=== PATIENT | female | born 1955 | race Caucasian/White ===

== ENCOUNTER 2017-07-05 07:17 | Inpatient (IN) | payer OTHER ==
[~2017-07-05] VITALS: Ht 157.5 cm; Wt 92.5 kg
[~2017-07-05 07:17] MED LIST: AZITHROMYCIN 2250 MG PO; BACTRIM DS TAB1 EACH PO; COMBIVENT INH; FLEXERIL PO; IBUPROFEN 800800 M1 PO; MOBIC7.5 M1 PO; NOHOMEMEDICATIONS; NORCO 5-325 TA1 EACH PO; PREDNISONE 20 M20 M1 PO; ULTRAM 50MG TAB50 MG PO
[2017-07-05 07:20] VITALS: BP 169/70
[2017-07-05] MEDS ORDERED: OXYCONTIN10 M1 PO (07:31)
[2017-07-05] MEDS ORDERED: LISINOPRIL5 MG PO (07:32)
[2017-07-05] MEDS ORDERED: METFORMIN HCL500 MG PO (07:33)
[2017-07-05] MEDS ORDERED: LIPITOR 20 MG T20 M1 PO (07:33)
[2017-07-05] MEDS ORDERED: LEVAQUIN 750 M750 MG PO (07:34)
[2017-07-05] MEDS ORDERED: ASPIR 8181 MG PO (07:35)
[2017-07-05 07:36] LABS: ABSOLUTE BASOPHILS 0.1 thou/uL (0.0-0.2); ABSOLUTE EOSINOPHILS 0.3 thou/uL (0.0-0.7); ABSOLUTE LYMPHOCYTES 2.5 thou/uL (0.8-5.3); ABSOLUTE MONOCYTES 1.2 thou/uL (0.0-1.2); ABSOLUTE NEUTROPHILS 7.5 thou/uL (1.6-8.1); BASOPHILS 0.6 %; EOSINOPHILS 2.2 %; HEMATOCRIT 39.1 % (37.0-47.0); HEMOGLOBIN 13.1 gm/dL (12.0-15.0); LYMPHOCYTES 21.8 %; MCH 30.2 pg (26.0-34.0); MCHC 33.6 g/dL (28.0-37.0); MCV 89.9 fL (80.0-100.0); MONOCYTES 10.4 %; MPV 8.4 fl. (7.2-11.1); NUCLEATED RBCS 0 /100WBC; PLATELET COUNT* 321 thou/uL (150-400); RBC 4.35 mil/uL (4.20-5.00); RDW-CV 13.7 % (10.5-14.5); WBC 11.5 thou/uL (4.0-11.0)
[2017-07-05] MEDS ORDERED: ALBUTEROL2.5 MG/31 INH (07:36)
[2017-07-05 07:41] LABS: CALCIUM 9.3 mg/dL (8.5-10.1); CREATININE 0.6 mg/dL (0.6-1.3); POTASSIUM 4.2 mmol/L (3.5-5.1)
[2017-07-05 07:46] LABS: ALBUMIN 2.8 g/dL (3.4-5.0); TOTAL BILIRUBIN 0.2 mg/dL (<0.1-1.0); TOTAL PROTEIN 7.5 g/dL (6.4-8.2)
[2017-07-05 09:14] LABS: BE 2.8 mmol/L (-2 to +3); HCO3 29.6 mmol/L (22.0-26.0); PO2 73.5 mmHg (75.0-100.0); pH 7.346 (7.340-7.450)
[2017-07-05 09:17] LABS: PCO2 55.4 mmHg (35.0-45.0)
[2017-07-05 15:26] VITALS: BP 128/57
[2017-07-05 15:35] VITALS: BP 136/64
--- NOTE | 2017-07-05 16:06 | EKG ---
[place] [address] ELECTROCARDIOGRAM REPORT Name: PHILIP SAUL Room: [address] IN [facility]#: [id number] Admission: 07/05/17 Attend Phys: Shravan Pérez, Discharge: Date of : 57 Report #: [id number] THIS REPORT FOR: //name// [facility] ED Test Date: 2017-07-05 Test Time: 07:51:38 Pat Name: PHILIP SAUL Department: Room: Gender: F Crusher: Edita CASTILLO : 1955 Requested By: Saira Patel Order Number: [id number] MD: Edward Escalante Measurements Intervals [place] Rate: 65 P: 60 TX: 212 QRS: -29 QRSD: 112 T: 40 QT: 404 QTc: 421 Interpretive Statements Sinus rhythm Borderline prolonged TX interval Incomplete right bundle branch block Baseline wander in lead(s) V2 No previous ECG available for comparison Electronically Signed On 07-05-2017 16:06:02 CDT by Edward Escalante [email or web address] <ELECTRONICALLY SIGNED> By: Edward Escalante MD, [facility] 07/05/17 1606 [phone] Edward Escalante MD, [facility] /EPI
[2017-07-05 20:00] VITALS: BP 159/81
[2017-07-06 00:22] VITALS: BP 130/65
[2017-07-06 03:58] VITALS: BP 137/80
[2017-07-06 05:41] LABS: HEMATOCRIT 36.9 % (37.0-47.0); HEMOGLOBIN 12.4 gm/dL (12.0-15.0); MCH 30.1 pg (26.0-34.0); MCHC 33.6 g/dL (28.0-37.0); MCV 89.6 fL (80.0-100.0); NUCLEATED RBCS 0 /100WBC; PLATELET COUNT* 317 thou/uL (150-400); RBC 4.12 mil/uL (4.20-5.00); RDW-CV 13.6 % (10.5-14.5); WBC 10.8 thou/uL (4.0-11.0)
[2017-07-06 06:03] LABS: CREATININE 0.5 mg/dL (0.6-1.3); POTASSIUM 3.9 mmol/L (3.5-5.1)
[2017-07-06 06:26] LABS: ABSOLUTE LYMPHOCYTES 0.5 thou/uL (0.8-5.3); ABSOLUTE MONOCYTES 0.1 thou/uL (0.0-1.2); ABSOLUTE NEUTROPHILS 10.2 thou/uL (1.6-8.1); ANISOCYTOSIS 1+; PLATELET ESTIMATE ADEQUATE; POIKILOCYTOSIS 1+
[2017-07-06 08:00] VITALS: BP 144/77
[2017-07-06 11:20] VITALS: BP 151/80
[2017-07-06 15:19] VITALS: BP 152/69
[2017-07-06 20:00] VITALS: BP 147/70
[2017-07-07] VITALS: BP 137/62
[2017-07-07 04:00] VITALS: BP 143/69
[2017-07-07 05:14] LABS: ABSOLUTE LYMPHOCYTES 1.4 thou/uL (0.8-5.3); ABSOLUTE MONOCYTES 0.9 thou/uL (0.0-1.2); ABSOLUTE NEUTROPHILS 12.1 thou/uL (1.6-8.1); BASOPHILS 0.1 %; HEMATOCRIT 36.9 % (37.0-47.0); HEMOGLOBIN 12.2 gm/dL (12.0-15.0); LYMPHOCYTES 9.6 %; MCHC 33.1 g/dL (28.0-37.0); MCV 90.6 fL (80.0-100.0); MONOCYTES 6.2 %; MPV 8.2 fl. (7.2-11.1); NUCLEATED RBCS 0 /100WBC; PLATELET COUNT* 317 thou/uL (150-400); POLYS 84.1 %; RBC 4.08 mil/uL (4.20-5.00); RDW-CV 13.3 % (10.5-14.5); WBC 14.3 thou/uL (4.0-11.0)
[2017-07-07 05:31] LABS: ALBUMIN 2.8 g/dL (3.4-5.0); CALCIUM 8.8 mg/dL (8.5-10.1); CREATININE 0.4 mg/dL (0.6-1.3); MAGNESIUM 2.2 mg/dL (1.8-2.4); POTASSIUM 4.5 mmol/L (3.5-5.1); TOTAL BILIRUBIN 0.2 mg/dL (<0.1-1.0); TOTAL PROTEIN 6.9 g/dL (6.4-8.2)
[2017-07-07 08:00] VITALS: BP 145/70
--- NOTE | 2017-07-07 08:19 | CON ---
[address] [address] CONSULTATION Name: PHILIP SAUL Room: [address] IN M.R.#: [id number] Admission: 07/05/17 Attend Phys: Shravan Pérez, Discharge: Date of : 57 Report #: [id number] THIS REPORT FOR: //name// CC: [facility] physician/PCP Shravan Pérez DATE OF SERVICE: 07/06/2017 CONSULT REQUESTED BY: Mina Syed. INDICATION FOR CONSULTATION: Lung mass. HISTORY OF PRESENT ILLNESS: This is a 62-year-old female with past medical history that includes a history of COPD. The patient is not on supplemental oxygen and not on long-term prednisone. The patient does use p.r.n. narcotic at home. The patient reports that she has been sick for the last couple of weeks, was seen at [facility] last Thursday in the Emergency Room. She reports that she was increasingly short of breath and also was coughing and bringing up scanty sputum at that time. The patient reports having received Levaquin at that time. She is not receiving a steroid. She subsequently was discharged from the ER. The patient yesterday started feeling worse, had significant increase in shortness of breath as well as cough, not much sputum production though, no chest pain, no upper respiratory complaints, no swelling of lower extremities or calf pain. The patient therefore came to our Emergency Room yesterday with increasing shortness of breath. The patient initially also reported chest pain associated with respiration and coughing towards the right side of her chest. Since arrival, she has been treated with corticosteroids in addition to nebulized bronchodilators, has also been treated with Zosyn. She reports marked improvement in her shortness of breath and cough. Her chest pain has essentially subsided. She does have some longstanding pain complaints which she has taken p.r.n. narcotics at times. She also says that she is fairly anxious and has a strong gag reflex. REVIEW OF SYSTEMS: For 12 points is negative except as mentioned above. PAST MEDICAL HISTORY: COPD. She reports having used inhalers in the past. I do not have any previous PFTs available, tubal ligation, hyperglycemia, possible diabetes. Note that the patient is on metformin at home, possible history of hypertension, hyperlipidemia, tubal ligation, hernia surgery in April of 2017. I do not have a measure of her left ventricular ejection fraction available. SOCIAL HISTORY: Extensive history of smoking more than a pack a day, discontinued 2 months ago. No known history [place] heavy [place] [address] CONSULTATION Name: PHILIP SAUL Room: [address]#: [id number] Admission: 07/05/17 Attend Phys: Shravan Pérez, Discharge: Date of : 57 Report #: [id number] drug use. CURRENT MEDICATIONS: List in [employer] reviewed. HOME MEDICATIONS: List also in [facility] reviewed. FAMILY HISTORY: There is no pertinent family history. PHYSICAL EXAMINATION: GENERAL: She is alert, awake and oriented. She does appear to be anxious, but she is in no distress. VITAL SIGNS: She has a pulse of 91 and a blood pressure of 152/69. She is on 2 liters nasal cannula. She has been saturating in the high 90s. Her respiratory rate is mildly elevated to 20. Her temperature was 37.0, T-max 37.2. HEENT: Head is normocephalic and atraumatic. Pupils are equal and reactive. There is no throat erythema. NECK: Does not show raised JVP, asymmetry, mass or lymph nodes. CHEST: Symmetrical expansion on inspection and palpation. On auscultation, there is mild reduction in air flow bilaterally. Otherwise, chest is essentially clear. HEART: Regular. There is no murmur. ABDOMEN: Soft and nontender. EXTREMITIES: Lower extremities show no edema, no calf tenderness. SKIN: Dry and intact. NEUROLOGICAL: Moves all extremities bilaterally equally and spontaneously. There is no focal deficit identified. DIAGNOSTIC DATA: The patient did have a CTA chest performed yesterday. I reviewed both the films as well as report. This is as discussed below in more detail. LABORATORY DATA: The patient's CBC as well as chemistries are in [facility] and these are reviewed. Arterial blood gas, which shows chronic hypercarbic respiratory failure with a pCO2 of 55. There appears to be an acute component as well on admission in [facility] reviewed. ASSESSMENT AND PLAN: 1. Lung mass with mediastinal lymphadenopathy. There is a mass-like density, which is seen superiorly and anteriorly in the right lung. This is suspicious of a malignancy. The mass does appear to be in the right hilar region; however, I am not certain if there in fact is endobronchial extension. Certainly it should be possible to do a bronchoscopy; however, I am not certain if it will be possible to in fact perform a biopsy of this mass using a regular bronchoscopy. Performing a CT-guided lung biopsy is another option. The mass does extend close to the pleura anteriorly; however, if a CT-guided biopsy is performed, then it may be difficult to distinguish between the mass and post-obstructive [address] [place] [address] CONSULTATION Name: PHILIP SAUL Room: [address]#: [id number] Admission: 07/05/17 Attend Phys: Shravan Pérez, Discharge: Date of : 57 Report #: [id number] atelectatic lung. I tried reaching a radiologist at this time, I was, however, unable, will tentatively plan on a bronchoscopy tomorrow. We may discuss with the radiologist regarding feasibility or otherwise of CT-guided biopsy before we proceed with a bronchoscopy. Note that this mass should be approachable using a bronchoscopy with endobronchial ultrasound with navigation. Therefore if this mass cannot be adequately biopsied otherwise, then I would favor referring her to [facility] for a bronchoscopy with endobronchial ultrasound and navigation rather than a CT surgery referral as this will be less invasive for this patient. Down the line the patient does appear to need an outpatient PET scan as well. 2. Pulmonary infiltrates/pneumonia. She recently received Levaquin and currently is on Zosyn with the same. 3. Chronic obstructive pulmonary disease exacerbation. Her bronchospasm does appear to have improved. I would, however, recommend continuing with the current dose of Solu-Medrol today, reassess tomorrow regarding potential taper. 4. Deep vein thrombosis prophylaxis. We will hold Lovenox dose tonight. 5. Evaluation of cardiac function. We will also do a 2D echo. Thanks for this consultation. <ELECTRONICALLY SIGNED> By: Kiarra Chatterjee MD 07/07/17 0819 1644 [id number] Tanner MD /ashok
[2017-07-07 11:28] VITALS: BP 152/73
--- NOTE | 2017-07-07 16:09 | 2DMMODE ---
[place] [address] 2 D/M-MODE ECHOCARDIOGRAM Name: PHILIP SAUL Room: [address] IN [facility]#: [id number] Admission: 07/05/17 Attend Phys: Shravan Barbosa Discharge: Date of : 57 Date of Service: 07/07/17 1609 Report #: [id number] THIS REPORT FOR: //name// APPROVED REPORT Study performed: 07/07/2017 14:37:19 EXAM: Comprehensive 2D, Doppler, and color-flow Echocardiogram Patient Location: In-Patient Room #: 214 Status: routine BSA: 1.92 HR: 87 bpm BP: 143/69 mmHg Rhythm: NSR Other Information Study Quality: Good Indications Dyspnea 2D Dimensions LVEF(%): 69.44 (>50%) IVSd: 11.28 (7-11mm) LVOT Diam: 20.13 (18-24mm) LVDd: 52.28 mm PWd: 9.79 (7-11mm) Ascending Ao: 31.09 (22-36mm) LVDs: 31.71 (25-40mm) Aortic Root: 29.41 mm Segovia's LVEF: 69.44 % Volumes Left Atrial Volume (Systole) LA ESV Index: 28.80 mL/m2 Aortic Valve AoV Peak Bala.: 2.34 m/s AO Peak Gr.: 21.91 mmHg LVOT Max P.46 mmHg AO Mean Gr.: 11.80 mmHg LVOT Mean P.38 mmHg LVOT Max V: 1.27 m/s AO V2 VTI: 50.76 cm LVOT Mean V: 0.86 m/s MITA (VTI): 1.89 cm2 LVOT V1 VTI: 30.19 cm Mitral Valve E/A Ratio: 0.81 [place] [address] 2 D/M-MODE ECHOCARDIOGRAM Name: PHILIP SAUL Room: [address] IN .R.#: [id number] Admission: 07/05/17 Attend Phys: Shravan Barbosa Discharge: Date of : 57 Date of Service: 07/07/17 1609 Report #: [id number] MV Decel. Time: 277.64 ms MV E Max Bala.: 1.00 m/s MV PHT: 80.52 ms MVA (PHT): 2.73 cm2 TDI E/Lateral E': 9.09 E/Medial E': 9.09 Medial E' Bala.: 0.11 m/s Lateral E' Bala.: 0.11 m/s Pulmonary Valve PV Peak Bala.: 1.19 m/s PV Peak Gr.: 5.71 mmHg Left Ventricle The left ventricle is normal size. There is normal LV segmental wall motion. There is normal left ventricular wall thickness. Left ventricular systolic function is normal. The left ventricular ejection fraction is within the normal range. LVEF is 60-65%. Grade I - abnormal relaxation pattern. Right Ventricle The right ventricle is normal size. The right ventricular systolic function is normal. Atria The left atrium size is normal. The right atrium size is normal. Aortic Valve Mild aortic valve sclerosis. No aortic regurgitation is present. Mild aortic stenosis. Mitral Valve The mitral valve is normal in structure. Trace mitral regurgitation. No evidence of mitral valve stenosis. Tricuspid Valve The tricuspid valve is normal in structure. Trace tricuspid regurgitation. Unable to assess PA pressure. Pulmonic Valve Pulmonic valve is not well visualized. There is no pulmonic valvular regurgitation. Great Vessels The aortic root is normal in size. [place] [address] 2 D/M-MODE ECHOCARDIOGRAM Name: PHILIP SAUL Olivia Room: [address]#: [id number] Admission: 07/05/17 Attend Phys: Shravan Barbosa Discharge: Date of : 57 Date of Service: 07/07/17 1609 Report #: [id number] collapses with >50% inspiration Pericardium There is no pericardial effusion. <Conclusion> LVEF is 60-65%. Mild aortic valve sclerosis. <ELECTRONICALLY SIGNED> By: Quinn Aleman MD, FACC 07/07/17 1609 08 08 Quinn Aleman MD, FAC /INF
[2017-07-07 17:19] VITALS: BP 147/75
[2017-07-07 20:00] VITALS: BP 163/73
[2017-07-08 00:11] VITALS: BP 106/50
[2017-07-08 04:28] VITALS: BP 138/69
[2017-07-08 05:19] LABS: ABSOLUTE LYMPHOCYTES 1.2 thou/uL (0.8-5.3); ABSOLUTE NEUTROPHILS 11.5 thou/uL (1.6-8.1); BASOPHILS 0.1 %; HEMATOCRIT 38.2 % (37.0-47.0); HEMOGLOBIN 12.4 gm/dL (12.0-15.0); LYMPHOCYTES 8.7 %; MCH 29.7 pg (26.0-34.0); MCHC 32.5 g/dL (28.0-37.0); MCV 91.3 fL (80.0-100.0); MPV 8.3 fl. (7.2-11.1); NUCLEATED RBCS 0 /100WBC; PLATELET COUNT* 343 thou/uL (150-400); POLYS 84.2 %; RBC 4.18 mil/uL (4.20-5.00); RDW-CV 13.6 % (10.5-14.5); WBC 13.7 thou/uL (4.0-11.0)
[2017-07-08 05:36] LABS: ALBUMIN 2.9 g/dL (3.4-5.0); CALCIUM 9.2 mg/dL (8.5-10.1); CREATININE 0.7 mg/dL (0.6-1.3); POTASSIUM 4.3 mmol/L (3.5-5.1); TOTAL BILIRUBIN 0.2 mg/dL (<0.1-1.0); TOTAL PROTEIN 7.2 g/dL (6.4-8.2)
[2017-07-08 07:44] VITALS: BP 158/96
[2017-07-08] MEDS ORDERED: XANAX 0.25 MG0.25 MG PO (09:58)
[2017-07-08] MEDS ORDERED: HUMALOG KW200 UNIT/1 SUBQ (09:59)
[2017-07-08] MEDS ORDERED: PREDNISONE 10 M10 MG PO (10:03)
[2017-07-08] MEDS ORDERED: PROTONIX40 M1 PO (10:04)
[2017-07-08] MEDS ORDERED: DUONEB 2.5-0.5 M3 ML INH (10:05)
[2017-07-08 10:19] VITALS: BP 158/96
[2017-07-08 12:00] VITALS: BP 157/77
--- NOTE | 2017-07-09 08:22 | OP ---
[address] [address] OPERATIVE REPORT Name: PHILIP SAUL Room: [address] IN M.R.#: [id number] Admission: 07/05/17 Attend Phys: Shravan Pérez, Discharge: 07/08/17 Date of : 57 Report #: [id number] THIS REPORT FOR: //name// CC: [facility] physician/PCP Shravan Pérez PROCEDURE: Bronchoscopy with brushing, washings and bronchial biopsies. INDICATIONS FOR PROCEDURE: The patient is a 62-year-old woman with a history of tobacco abuse, who was found to have very large right hilar mass with extensive mediastinal adenopathy. Based on the imaging, also has marked airway narrowing of the right upper lobe takeoff. Imaging studies were highly suspicious for bronchogenic carcinoma. Bronchoscopy was recommended to evaluate airways and obtain tissue for diagnostic purposes. DESCRIPTION OF PROCEDURE: Consent was obtained from the patient. She was informed of the risks of the procedure and elected to proceed. She was premedicated prior to the procedure with Demerol and Robinul. Also received additional breathing treatment prior to the procedure. She was already on scheduled bronchodilators and antibiotics to cover for post-obstructive pneumonia. Following an initial timeout, the procedure did commence. She was on O2, initially at 2-4 liters per nasal cannula. It was increased up to 8 liters during the procedure. She was given sedation. Total amounts of Versed 6 mg and fentanyl 100 mcg in smaller increments at the start and throughout the procedure. The bronchoscope was advanced through the right naris and into the posterior pharynx. The cords were normal in appearance and moved symmetrically. Despite the prep job, still had considerable amount of cough and gagging. The cords were anesthetized with lidocaine. A bronchoscope was advanced through the cords and into the trachea. She had some mild tracheobronchitis noted. The main kike was just mildly splayed. All segments were open and patent on the left side. Scant amount of secretions were noted. On the right side, there was some distortion with the right upper lobe takeoff pulled somewhat more medial. There was marked deformity noted. Marked mucosal irregularities and narrowing. Did not have any gross endobronchial lesions seen. She had a moderate amount of secretions on the right side. Right middle lobe and right lower lobe bronchi and smaller bronchi were all open and patent. Given the abnormalities noted, attention was directed to the right upper lobe. A cytology brush was obtained with slides prepared. However, given the angle of the takeoff, I was not able to advance it through the slit of what appeared to be probably the anterior segment of the right upper lobe. Once that was done with slides prepared, bronchial biopsies were attempted. Again, [place] [address] OPERATIVE REPORT Name: PHILIP SAUL Room: [address] IN M.R.#: [id number] Admission: 07/05/17 Attend Phys: Shravan Pérez, Discharge: 07/08/17 Date of : 57 Report #: [id number] it was also difficult to biopsy the area that appeared the most abnormal due to the sharp takeoff. It was unable to get as many specimens as would have liked. Note also she had a considerable amount of cough and gagging. This was despite the sedation that was given. She did have some mild bleeding noted with the biopsies. Several biopsies had been taking, was still having difficulty trying to control her cough. A single wash was done. During all this, her O2 saturations, end-tidal CO2 and vital signs were monitored. All parameters remained stable. FINAL DIAGNOSES: Large right hilar mass with extensive mediastinal adenopathy. Has marked abnormalities noted via bronchoscopy. There is airway narrowing, right upper lobe, all consistent with malignancy. PLAN: Await results. If unable to make a diagnosis on this bronchoscopy, can have IR evaluate her. If a repeat procedure does need to be done via a bronchoscopy, general anesthetic would probably be required. <ELECTRONICALLY SIGNED> By: Kiarra Chatterjee MD 07/09/17 0822 1304 [id number] Chatterjee MD /nt
--- NOTE | 2017-07-09 14:15 | PATH ---
[address] [address] PATHOLOGY RPT PROCEDURE Name: PHILIP SAUL Room: [address]#: [id number] Admission: 07/05/17 Date of : 57 Discharge: 07/08/17 Report #: [id number] Path Case #: [id number] Note [facility] Accession Number: [id number] TESTS RESULT FLAG UNITS REF RANGE LAB Clinician Provided Cytology Information No. of containers..01 Other (Miscellaneous) Source: BRONCH WASH RUL DIAGNOSIS: 02 BRONCH WASH RUL NEGATIVE FOR MALIGNANT CELLS. NORMAL BRONCHIAL CELLS AND MACROPHAGES ARE PRESENT. Signed out by: 02 Jewel Beasley MD, Pathologist NPI- [id number] Performed by: 02 Dianna Yoon, Refractory Manager ([facility]) Gross description: 01 8ML, RED, CLOUDY /LCS FLAG LEGEND: L-Low Normal,H-High Normal,LL-Alert Low,HH-Alert High <-Panic Low,>-Panic High,A-Abnormal,AA-Critical Abnormal Performed at: [address] [place] [address] Devang Laurent MD, [address] [address] Ambrose Walker MD, A duplicate report has been generated due to demographic updates. Performed at: [address] [address], [place], [place] [id number] MD Devang Laurent MD Phone: [phone]
--- NOTE | 2017-07-09 14:17 | PATH ---
[address] [address] PATHOLOGY RPT PROCEDURE Name: PHILIP SAUL Room: [address]#: [id number] Admission: 07/05/17 Date of : 57 Discharge: 07/08/17 Report #: [id number] Path Case #: [id number] Note [facility] Accession Number: [id number] TESTS RESULT FLAG UNITS REF RANGE LAB Clinician Provided Cytology Information No. of containers..01 Slide Source: BRONCH BRUSHING RUL DIAGNOSIS: BRONCH BRUSHING RUL INCONCLUSIVE. RARE ATYPICAL CELLS PRESENT. Signed out by: 02 Jewel Beasley MD, Pathologist NPI- [id number] Performed by: 02 Dianna Yoon, Mails Supervisor ([facility]) FLAG LEGEND: L-Low Normal,H-High Normal,LL-Alert Low,HH-Alert High <-Panic Low,>-Panic High,A-Abnormal,AA-Critical Abnormal Performed at: [address] [place] [address] Devang Laurent MD, [address] [place] [id number] Ambrose Walker MD, A duplicate report has been generated due to demographic updates. Performed at: [address] [place] [id number] MD Devang Laurent MD Phone: [phone]
--- NOTE | 2017-07-20 22:35 | CON ---
[address] [address] CONSULTATION Name: PHILIP SAUL Room: [address] IN M.R.#: [id number] Admission: 07/05/17 Attend Phys: Shravan Pérez, Discharge: 07/08/17 Date of : 57 Report #: [id number] THIS REPORT FOR: //name// CC: Mina Chatterjee MD DATE OF SERVICE: 07/07/2017 [facility] REFERRING PHYSICIANS: Include Mina Syed MD and Kiarra Chatterjee MD. PRIMARY SITE AND HISTOPATHOLOGY: The patient has findings consistent with at least a presumed stage III lung cancer, though the pathology is still pending. HISTORY OF PRESENT ILLNESS: The patient was admitted to [facility] on 07/05/2017. She had a several week history of chest wall pain and then she indicated that she was using her inhaler on the day of admission and became short of breath. So, she was admitted to [facility]. The patient had a CT angiogram of the chest on 07/05/2017 and that revealed a mass involving the upper lobe of the right lung that measured about 4.9 cm x 4.1 cm x 5.5 cm. with invasion of the mediastinum and it was consistent with a primary bronchogenic carcinoma. There was extrinsic compression of the right upper lobe airways as well as the pulmonary arteries and veins resulting in postobstructive collapse, pneumonitis, and venous congestion. The patient had bulky superior mediastinal lymphadenopathy that measured about 4.4 cm x 2.8 cm x 4.6 cm. She had a small right pleural effusion. There was no evidence of a pulmonary embolism and then she had an abdominal/pelvic CT on 07/07/2017 and that revealed no acute process or metastatic disease within the abdomen or pelvis. There was a stable left paraspinal soft tissue mass at the T9 level, which could represent metastatic lymphadenopathy. She also had a head MRI on 07/07/2017, was a normal MRI of the brain with and without contrast. There is no evidence of intracranial metastatic disease. She underwent a fiberoptic bronchoscopy on 07/07/2017, which showed marked narrowing of the right upper lobe bronchus suspicious for a malignant process. So, the pathology is pending and I was consulted to see the patient. PAST MEDICAL HISTORY AND PAST SURGICAL HISTORY: Positive for diabetes, hypertension. She had an abdominal hernia repair a few months ago. She had tubal ligation. MEDICATIONS: Includes insulin as needed, ibuprofen as needed. She is on piperacillin-tazobactam. She is on methylprednisolone, alprazolam as needed and at home, she was taking 10 mg of OxyContin every 6 hours as needed for pain. In the hospital, she was on 5-10 mg oxycodone every 6 hours as needed for pain and at home, she was also taking 5 mg lisinopril per day and 20 [place] [address] CONSULTATION Name: DORYSPHILIP Baker Room: [address]#: [id number] Admission: 07/05/17 Attend Phys: Shravan Pérez, Discharge: 07/08/17 Date of : 57 Report #: [id number] day as well as metformin and 81 mg of aspirin and albuterol nebulizer. FAMILY HISTORY: Negative. There is no history of cancer in the family. SOCIAL HISTORY: Cigarettes: She quit smoking about 2 months ago. She smoked about 1-1/2 packs per day since she was about 15 years of age. REVIEW OF SYSTEMS: GENERAL: The patient had about a 10-pound weight loss over the last 3 weeks. SKIN: She had no color changes. LYMPH NODES: She had no enlarged or painful glands of the neck. ENDOCRINE: The patient had no hot or cold intolerance. HEMATOLOGY/IMMUNOLOGY: The patient had no recent bleeding. MUSCULOSKELETAL: She had no painful swollen joints. HEAD AND NECK: She lately has had some headaches, which she attributes to the stress of her present diagnosis. RESPIRATION: She denied Having shortness of breath. CARDIOVASCULAR: She denied having palpitations. GASTROINTESTINAL: She denied having nausea or vomiting. NEUROLOGIC: She denied having any focal weakness. She is able to get up a flight of stairs at home. PHYSICAL EXAMINATION: VITAL SIGNS: The patient's temperature was 97.8 degrees Fahrenheit, pulse 75, respirations 18, blood pressure 145/70. LYMPH NODES: She had no palpable cervical or supraclavicular lymphadenopathy. GENERAL PSYCHIATRIC: She was alert, oriented, and in no acute distress. EYES: Pupils were equal, round, reactive to light and accommodation. Extraocular movement were intact. HEAD, EARS, NOSE AND THROAT: Mouth had no visible lesions. HEART: Had a regular rate and rhythm without murmur. LUNGS: Had somewhat decreased breath sounds in the upper lobe of the right lung and mildly decreased breath sounds in the rest of the lung. Otherwise, clear to auscultation. ABDOMEN: Not tender. Spleen was palpable. Liver was at the costal margin. EXTREMITIES: No clubbing, cyanosis or edema. NEUROLOGIC: Cranial nerves II through XII are intact. Sensation was intact. She had 4/5 strength throughout her extremities. LABORATORY DATA: From 07/07/2017, sodium 141, potassium 4.5, BUN 16, creatinine 0.4, ALT 7. White blood count 13.7, hemoglobin 12.4, platelets. ASSESSMENT AND PLAN: The patient has findings most likely consistent with a lung cancer that is probably at least a stage III lung cancer. The pathology is still pending. Once the pathology results are known, then final treatment plans can be formulated. This will probably either be a small cell lung cancer versus a non-small cell lung cancer. So, we will await the pathology results and then formulate [place] [address] CONSULTATION Name: PHILIP SAUL Room: [address] IN M.R.#: [id number] Admission: 07/05/17 Attend Phys: Shravan Pérez, Discharge: 07/08/17 Date of : 57 Report #: [id number] Thank you very much for this consult. <ELECTRONICALLY SIGNED> By: Ghanshyam Correa MD 07/20/17 2235 1053 [id number] Correa MD /nt
--- NOTE | 2017-10-07 14:10 | PATH ---
[address] [address] PATHOLOGY RPT PROCEDURE Name: MARIAM SAUL Room: [address] IN .R.#: [id number] Admission: 07/05/17 Date of : 57 Discharge: 07/08/17 Report #: [id number] Path Case #: [id number] [facility] Accession Number: [id number] . 01 Material submitted: . RUL BIOPSY . 01 Clinical history: . Pneumonia, acute respiratory failure with hypoxia. . 02 Diagnosis: RUL biopsy: - Benign bronchial mucosa with mild chronic inflammation, negative for granulomas and dysplasia. (DIMITRIOS:pit; 07/08/2017) . QTP/07/08/2017 . 02 Electronically signed: . Alvarez Parkinson MD, Pathologist NPI- [id number] . 01 Gross description: . Received in formalin labeled "Young, Mariam, RUL," are multiple needle cores of farrell soft tissue measuring approximately 0.5 x 0.3 x 0.1 cm in aggregate dimensions. The specimen is filtered and entirely submitted in a biopsy bag in cassette A1. (TSD; 07/07/2017) TOB/TOB . 02 Pathologist provided ICD-10: J42 . 02 CPT . [id number] Performed at: [address], [place], [place] [id number] MD Devang Laurent MD Phone: [phone] Performed at: 02 [facility] [address], [place], [place] [id number] MD Alvarez Parkinson MD Phone: [phone]
== END 2017-07-08 16:45 | disposition home or self-care (01) | DRG 166 ==
LOC: M.ERS 07:17 → M.TBA-ER 10:54 → M.2W 10:54
PROVIDERS: Internal Medicine; Internal Medicine Critical Care Medicine; Personal Emergency Response Attendant; ADMIT Family Medicine
DX: J15.6 Pneumonia due to other Gram-negative bacteria (principal); J96.01 Acute respiratory failure with hypoxia; R65.11 Systemic inflammatory response syndrome (SIRS) of non-infectious origin with acute organ dysfunction; J44.0 Chronic obstructive pulmonary disease with (acute) lower respiratory infection; J44.1 Chronic obstructive pulmonary disease with (acute) exacerbation; I10 Essential (primary) hypertension; E11.9 Type 2 diabetes mellitus without complications; Z87.891 Personal history of nicotine dependence; Z79.2 Long term (current) use of antibiotics; Z79.82 Long term (current) use of aspirin; Z79.899 Other long term (current) drug therapy